=== PATIENT | female | born 1980 | race Two or more races ===

== ENCOUNTER → 2017-04-26 | Outpatient (CLI) | payer OTHER ==
--- NOTE | 2017-04-26 13:14 | RAD ---
DATE: 04/26/2017 EXAM: DIGITAL DIAGNOSTIC RT, BREAST RIGHT HISTORY: Physician examining the breast and identifying possible lump in the right breast COMPARISON: 01/04/2015 This study was interpreted with the benefit of Computerized Aided Detection (CAD ). FINDINGS: Breast Density: HETERO is heterogeneously dense, which could reduce sensitivity of mammography. Breast parenchyma level C. The patient is only 36 therefore only the right breast was imaged at this time. There has been no change in the mammographic appearance of the right breast relative to the previous exam. Targeted ultrasound was performed. In addition to images submitted by the technologist a real-time examination was performed by me. The breast was examined from approximately the 3 to the 8:00 position. No abnormality is seen. IMPRESSION: Benign findings on breast mammography. Normal targeted ultrasound of the right breast. If there is a discrete, palpable, mass in the breast biopsy may be warranted despite unremarkable imaging. BI-RADS CATEGORY: 2 BENIGN FINDING(S) RECOMMENDED FOLLOW-UP: CLIN FOLLOW UP IMAGING CLINICALLY INDICATED PQRS compliance statement: Patient information was entered into a reminder system with a target due date as clinically warranted for the next mammogram. Mammography is a sensitive method for finding small breast cancers, but it does not detect them all and is not a substitute for careful clinical examination. A negative mammogram does not negate a clinically suspicious finding and should not result in delay in biopsying a clinically suspicious abnormality. "Our facility is accredited by the [employer] Mammography Program." MTDD
== END | disposition home or self-care (01) ==
LOC: MAMMO 10:10
PROVIDERS: ATTEND Family Medicine
DX: N63.0 Unspecified lump in unspecified breast (principal)
CPT/HCPCS: 76641; G0206; 77065